=== PATIENT | female | born 1940 | race Caucasian/White ===

== ENCOUNTER 2016-06-27 14:25 | Emergency (ER) | payer OTHER ==
[~2016-06-27] VITALS: Ht 154.9 cm; Wt 61.7 kg
[~2016-06-27 14:25] MED LIST: ALLEGRA-D 121 TABLET PO; ALLOPURINOL100 MG PO; AMBIEN10 MG PO; ARANESP10 MCG/0.4 SC; ASPIRIN EC325 MG PO; BACTRIM,SEPT1 TABLET PO; BYSTOLIC10 MG PO; CARDIZEM CD,CA240 MG PO; CELEBREX200 MG PO; CLINDAMYCIN HC300 MG PO; COLCRYS0.6 MG PO; CYANOCOBAL1000 MCG/2 IM; DICYCLOMINE HCL10 MG PO; FOLIC ACID1 MG PO; FUROSEMIDE20 MG PO; FUROSEMIDE40 MG PO; HUMALOG MI100 UNIT/3 SC; HUMALOG100 UNIT/2 SC; HYDROCODON-ACE1 EAC7 PO; HYDROCODON-ACE1 EAC8 PO; HYDROCODONE PO; KLOR-CON SPRIN10 MEQ PO; LEUCOVORIN CALC10 MG PO; LEUCOVORIN CALCI5 MG PO; LEVAQUIN500 MG PO; LEVEMIR FL100 UNIT/1 SC; LIPITOR20 MG PO; LISINOPRIL20 MG PO; LOMOTIL TABLET1 EACH PO; MAG-OXIDE400 MG PO; MAXAIR PO; METHOTREXA25 MG/1 M5 SC; NASACORT AQ16.5 GM BOTH NARES; NEXIUM40 MG PO; NORCO 7.5/321 TABLET PO; ONGLYZA5 MG PO; OTREXUP 1010 MG/0.4 SC; PREDNISONE10 MG PO; PREDNISONE2.5 MG PO; PROAIR HFA8.5 GM IH; RASUVO 12.12.5 MG/0. SC; RECLAST5 MG/100 M IV; REGLAN5 MG PO; SENNA-TIME S T1 EACH PO; SPIRIVA1 INHALATI IH; TRESIBA FL100 UNIT/1 SC; TYLENOL REGULA325 MG PO; VENTOLIN HFA18 GM IH; VITAMIN B122500 MCG PO; VITAMIN D2000 UNIT PO; VITAMIN D34000 UNIT PO; VOLTAREN 1% GE100 GM TP; XANAX0.25 MG PO; ZOFRAN4 MG PO
[2016-06-27 15:30] LABS: HEMATOCRIT 30.5 % (36.0-46.0); MCH 27.9 PG (29.0-34.0); MCHC 32.5 G/DL (30.0-36.0); MCV 85.9 FL (83-99); MEAN PLAT.VOLUME 9.2 uM^3 (9.5-12.4); PLATELET COUNT 210 K/uL (156-360); RBC DIS.WIDTH-SD 48.4 % (39-53); RED BLOOD COUNT 3.55 M/uL (3.80-5.20); WHITE BLOOD COUNT 5.8 K/uL (4.1-10.2)
[2016-06-27 15:38] LABS: CHLORIDE 102 mEq/L (99-109); POTASSIUM 3.5 mEq/L (3.7-5.4); SODIUM 134 mEq/L (136-147)
[2016-06-27 15:40] LABS: D-DIMER ELISA 1.83 mg/L FEU (< 0.57); GLUCOSE 228 mg/dL (70-99)
[2016-06-27 15:41] LABS: ANION GAP 10 MEQ/L (2-14)
[2016-06-27 15:43] LABS: GFR ESTIMATE (CALCULATED) > 59 mL/min/
[2016-06-27 15:44] LABS: UREA NITROGEN (BUN) 8 mg/dL (9-23)
[2016-06-27 15:50] LABS: TROP-I INTERPRETATION NEGATIVE; TROPONIN-I < 0.01 ng/mL (0.0-0.30)
[2016-06-27 20:19] VITALS: BP 132/60
== END 2016-06-27 20:43 | disposition home or self-care (01) ==
LOC: EME → EDBD 14:25 → EME 14:25
PROVIDERS: Emergency Medicine
DX: R55 Syncope and collapse (principal); J45.909 Unspecified asthma, uncomplicated; E11.9 Type 2 diabetes mellitus without complications; I10 Essential (primary) hypertension; K21.9 Gastro-esophageal reflux disease without esophagitis; Z98.1 Arthrodesis status; Z96.653 Presence of artificial knee joint, bilateral; Z79.4 Long term (current) use of insulin
CPT/HCPCS: 71020; 71275; 73502; 80048; 84484; 85027; 85379; 93005; 99281; 99285; J7030

== ENCOUNTER 2017-06-15 22:11 | Inpatient (IN) | payer OTHER ==
[~2017-06-15] VITALS: Ht 154.9 cm; Wt 64.5 kg
[~2017-06-15 22:11] MED LIST changes: -AMBIEN10 MG PO; +AMBIEN5 MG PO; +ERGOCALCIF50000 UNIT PO; +METHOTREXA25 MG/1 M5 IV; -METHOTREXA25 MG/1 M5 SC
[2017-06-15 22:40] LABS: BASOPHIL (%) 0.5 % (0-1); EOSINOPHIL (%) 1.1 % (0-5); EOSINOPHIL COUNT 0.1 K/uL (0-0.3); HEMATOCRIT 28.5 % (36.0-46.0); HEMOGLOBIN 9.8 G/DL (11.9-15.5); IMMATURE GRANULOCYTE (%) 0.2 % (0.0-0.7); LYMPHOCYTE (%) 21.2 % (15-42); LYMPHOCYTE COUNT 1.3 K/uL (1.0-2.8); MCH 30.6 PG (29.0-34.0); MCHC 34.4 G/DL (30.0-36.0); MCV 89.1 FL (83-99); MONOCYTE (%) 8.1 % (3-12); MONOCYTE COUNT 0.5 K/uL (0-0.8); NEUTROPHIL (%) 68.9 % (45-76); NEUTROPHIL COUNT 4.4 K/uL (1.8-6.4); PLATELET COUNT 193 K/uL (156-360); RBC DIS.WIDTH-CV 14.8 % (11.8-14.6); RBC DIS.WIDTH-SD 48.2 % (39-53); WHITE BLOOD COUNT 6.3 K/uL (4.1-10.2)
[2017-06-15 22:51] LABS: ALBUMIN 3.7 g/dL (3.2-4.8); CHLORIDE 105 mEq/L (99-109); POTASSIUM 3.5 mEq/L (3.7-5.4); SODIUM 134 mEq/L (136-147)
[2017-06-15 22:53] LABS: GLUCOSE 139 mg/dL (70-99)
[2017-06-15 22:54] LABS: TOTAL PROTEIN 5.9 g/dL (6.4-8.3)
[2017-06-15 22:55] LABS: TOTAL BILIRUBIN 0.7 mg/dL (0.0-1.0)
[2017-06-15 22:57] LABS: ALKALINE PHOSPHATASE 42 IU/L (3-129); CREATININE 0.8 mg/dL (0.6-1.3); GFR ESTIMATE (CALCULATED) > 59 mL/min/
[2017-06-15 22:58] LABS: UREA NITROGEN (BUN) 7 mg/dL (9-23)
[2017-06-15 22:59] LABS: AST (GOT) 39 IU/L (2-34)
[2017-06-15 23:00] LABS: ALT (GPT) 18 IU/L (3-49)
[2017-06-16 00:56] LABS: APPEARANCE SL.HAZY ((CLEAR)); BILIRUBIN NEGATIVE; BLOOD SMALL; COLOR YELLOW ((YELLOW)); GLUCOSE (STRIP) NEGATIVE; KETONES NEGATIVE; LEUKOCYTES LARGE; NITRITE POSITIVE; PROTEIN (STRIP) NEGATIVE; SPECIFIC GRAVITY 1.004 (1.000-1.030); UROBILINOGEN 0.2 MG/DL (0.2-1.0)
[2017-06-16 01:09] LABS: BACTERIA RARE /HPF; EPITHELIAL CELLS RARE /HPF; MUCUS TRACE /LPF; UCUL ADDED? YES; WHITE BLOOD CELLS TNTC /HPF (0-5)
[2017-06-16] MEDS ORDERED: CALCITRIOL0.25 MCG PO (03:34)
[2017-06-16] MEDS ORDERED: GLUCOTROL XL10 MG PO (03:34)
[2017-06-16] MEDS ORDERED: SPIRIVA18 MCG IH (03:35)
[2017-06-16] MEDS ORDERED: ACTOS15 MG PO (03:35)
[2017-06-16 03:43] VITALS: BP 134/62
[2017-06-16] MEDS ORDERED: PREDNISONE10 MG PO (03:46)
[2017-06-16 08:52] VITALS: BP 137/64
[2017-06-16 10:12] LABS: HEMATOCRIT 30.6 % (36.0-46.0); HEMOGLOBIN 10.1 G/DL (11.9-15.5); MCH 29.9 PG (29.0-34.0); MCV 90.5 FL (83-99); PLATELET COUNT 187 K/uL (156-360); RED BLOOD COUNT 3.38 M/uL (3.80-5.20); WHITE BLOOD COUNT 6.8 K/uL (4.1-10.2)
[2017-06-16 10:18] LABS: C DIFF TOXIN NEGATIVE (NEGATIVE)
[2017-06-16 10:39] LABS: CHLORIDE 109 MEQ/L (99-109); CREATININE 0.8 MG/DL (0.6-1.3); GFR ESTIMATE (CALCULATED) > 59 mL/min/; GLUCOSE 128 mg/dL (70-99); SODIUM 139 MEQ/L (136-147); UREA NITROGEN (BUN) 8 mg/dL (9-23)
[2017-06-16 12:44] VITALS: BP 133/63
[2017-06-16 15:14] VITALS: BP 115/55
[2017-06-16 18:44] LABS: MAGNESIUM 1.6 mg/dl (1.3-2.7); POTASSIUM 4.2 MEQ/L (3.7-5.4)
[2017-06-16 19:45] VITALS: BP 120/68
[2017-06-16 23:23] VITALS: BP 118/57
[2017-06-17 05:56] LABS: CHLORIDE 111 MEQ/L (99-109); POTASSIUM 4.1 MEQ/L (3.7-5.4); SODIUM 139 MEQ/L (136-147)
[2017-06-17 06:09] LABS: CREATININE 0.9 MG/DL (0.6-1.3); GFR ESTIMATE (CALCULATED) > 59 mL/min/; UREA NITROGEN (BUN) 9 mg/dL (9-23)
[2017-06-17 06:10] LABS: GLUCOSE 89 mg/dL (70-99)
[2017-06-17 08:00] VITALS: BP 108/60
[2017-06-17 09:43] LABS: BASOPHIL (%) 0.2 % (0-1); EOSINOPHIL (%) 1.3 % (0-5); EOSINOPHIL COUNT 0.1 K/uL (0-0.3); HEMATOCRIT 24.5 % (36.0-46.0); IMMATURE GRANULOCYTE (%) 0.4 % (0.0-0.7); LYMPHOCYTE (%) 30.7 % (15-42); LYMPHOCYTE COUNT 1.7 K/uL (1.0-2.8); MCH 29.9 PG (29.0-34.0); MCHC 32.2 G/DL (30.0-36.0); MCV 92.8 FL (83-99); MONOCYTE (%) 5.6 % (3-12); MONOCYTE COUNT 0.3 K/uL (0-0.8); NEUTROPHIL (%) 61.8 % (45-76); NEUTROPHIL COUNT 3.5 K/uL (1.8-6.4); PLATELET COUNT 174 K/uL (156-360); RBC DIS.WIDTH-CV 15.4 % (11.8-14.6); RBC DIS.WIDTH-SD 52.2 % (39-53); WHITE BLOOD COUNT 5.6 K/uL (4.1-10.2)
[2017-06-17 09:46] LABS: HEMOGLOBIN 7.9 G/DL (11.9-15.5); RED BLOOD COUNT 2.64 M/uL (3.80-5.20)
[2017-06-17 11:11] VITALS: BP 122/59
[2017-06-17 12:23] LABS: HEMOGLOBIN 7.7 G/DL (11.9-15.5)
[2017-06-17 14:56] LABS: IRON 35 MCG/DL (35-150); TRANSFERRIN (TIBC) 208.2 mg/dL (215-380); TRANSFERRIN SATUR. 17 % (20-55)
[2017-06-17 15:22] VITALS: BP 127/60
[2017-06-17 18:08] LABS: HEMATOCRIT 25.1 % (36.0-46.0); HEMOGLOBIN 8.2 G/DL (11.9-15.5)
[2017-06-17 19:54] VITALS: BP 141/63
[2017-06-17 23:24] VITALS: BP 150/64
[2017-06-18 00:21] LABS: HEMOGLOBIN 8.4 G/DL (11.9-15.5); MCV 92.6 FL (83-99)
[2017-06-18 06:05] LABS: HEMATOCRIT 25.9 % (36.0-46.0); HEMOGLOBIN 8.3 G/DL (11.9-15.5); MCV 93.8 FL (83-99)
[2017-06-18 09:00] VITALS: BP 147/65
[2017-06-18 11:40] LABS: HEMATOCRIT 24.7 % (36.0-46.0); HEMOGLOBIN 7.9 G/DL (11.9-15.5); MCV 93.6 FL (83-99)
[2017-06-18 11:51] VITALS: BP 125/59
[2017-06-18 15:08] VITALS: BP 128/57
[2017-06-18 17:55] VITALS: BP 141/69
[2017-06-18 18:45] LABS: HEMATOCRIT 27.5 % (36.0-46.0); HEMOGLOBIN 9.2 G/DL (11.9-15.5); MCV 93.9 FL (83-99)
[2017-06-18 19:45] VITALS: BP 133/61
[2017-06-18 23:11] VITALS: BP 158/71
[2017-06-19 05:33] LABS: HEMATOCRIT 25.6 % (36.0-46.0); HEMOGLOBIN 8.7 G/DL (11.9-15.5); MCH 31.3 PG (29.0-34.0); MCV 92.1 FL (83-99); PLATELET COUNT 201 K/uL (156-360); RBC DIS.WIDTH-CV 15.4 % (11.8-14.6); RBC DIS.WIDTH-SD 51.4 % (39-53); RED BLOOD COUNT 2.78 M/uL (3.80-5.20); WHITE BLOOD COUNT 7.3 K/uL (4.1-10.2)
[2017-06-19 08:00] VITALS: BP 133/63
[2017-06-19 12:00] VITALS: BP 153/73
[2017-06-19] MEDS ORDERED: BACTRIM,SEPT1 TABLET PO (12:21)
== END 2017-06-19 14:41 | disposition home health service (06) | DRG 392 ==
LOC: EME → EDBD 22:11 → EDOF 06-16 02:51 → ENRESERV 06-16 02:52 → 5WEST 06-16 03:37
PROVIDERS: Emergency Medicine; Hospitalist; Internal Medicine; Internal Medicine Gastroenterology; Physician Assistant Medical
PROC: 0DB38ZX Excision of Lower Esophagus, Via Natural or Artificial Opening Endoscopic, Diagnostic (ICD-10-PCS; principal; 2017-06-18)
PROC: 0DB68ZX Excision of Stomach, Via Natural or Artificial Opening Endoscopic, Diagnostic (ICD-10-PCS; principal; 2017-06-18)
DX: A08.4 Viral intestinal infection, unspecified (principal); N25.81 Secondary hyperparathyroidism of renal origin; K21.9 Gastro-esophageal reflux disease without esophagitis; J44.9 Chronic obstructive pulmonary disease, unspecified; K31.84 Gastroparesis; E86.0 Dehydration; K58.0 Irritable bowel syndrome with diarrhea; M06.9 Rheumatoid arthritis, unspecified; M10.9 Gout, unspecified; N18.3 Chronic kidney disease, stage 3 (moderate); E11.22 Type 2 diabetes mellitus with diabetic chronic kidney disease; E78.5 Hyperlipidemia, unspecified; I12.9 Hypertensive chronic kidney disease with stage 1 through stage 4 chronic kidney disease, or unspecified chronic kidney disease; D63.8 Anemia in other chronic diseases classified elsewhere; E11.43 Type 2 diabetes mellitus with diabetic autonomic (poly)neuropathy; E55.9 Vitamin D deficiency, unspecified; E53.8 Deficiency of other specified B group vitamins; E11.69 Type 2 diabetes mellitus with other specified complication; N30.10 Interstitial cystitis (chronic) without hematuria; Z60.2 Problems related to living alone; B18.2 Chronic viral hepatitis C; G43.909 Migraine, unspecified, not intractable, without status migrainosus; Z96.612 Presence of left artificial shoulder joint; Z96.611 Presence of right artificial shoulder joint; Z96.653 Presence of artificial knee joint, bilateral; Z79.4 Long term (current) use of insulin; Z98.1 Arthrodesis status; Z88.5 Allergy status to narcotic agent; Z88.1 Allergy status to other antibiotic agents; Z79.51 Long term (current) use of inhaled steroids; Z90.710 Acquired absence of both cervix and uterus; Z90.49 Acquired absence of other specified parts of digestive tract; Z86.010 Personal history of colon polyps; Z82.49 Family history of ischemic heart disease and other diseases of the circulatory system; Z80.0 Family history of malignant neoplasm of digestive organs; Z80.1 Family history of malignant neoplasm of trachea, bronchus and lung
CPT/HCPCS: 80048; 80053; 81003; 82272; 82948; 83540; 83605; 83630; 83735; 84132 91; 84466; 85014; 85018; 85025; 85027; 86850; 86900; 86901; 86905; 86920; 87077; 87086; 87177; 87186; 87329; 87493; 87506; 88305; 88342 TC; 94640; 94640 76; 99202; 99281; 99285; G8978 GP CJ; G8979 GP CI; J1644; J1815; J2405; J3420; J3480; J7030; J7512

== ENCOUNTER 2017-09-20 07:12 | Observation (INO) | payer OTHER ==
[~2017-09-20] VITALS: Ht 147.3 cm; Wt 63.3 kg
[~2017-09-20 07:12] MED LIST changes: +ACTOS15 MG PO; +CALCITRIOL0.25 MCG PO; +GLUCOTROL XL10 MG PO; -METHOTREXA25 MG/1 M5 IV; +METHOTREXA250 MG/10 IV; +SPIRIVA18 MCG IH
[2017-09-20 07:32] LABS: BASOPHIL (%) 0.3 % (0-1); EOSINOPHIL (%) 1.5 % (0-5); EOSINOPHIL COUNT 0.2 K/uL (0-0.3); HEMATOCRIT 28.6 % (36.0-46.0); IMMATURE GRANULOCYTE (%) 1.6 % (0.0-0.7); LYMPHOCYTE (%) 20.6 % (15-42); LYMPHOCYTE COUNT 2.2 K/uL (1.0-2.8); MCH 33.2 PG (29.0-34.0); MONOCYTE (%) 7.8 % (3-12); MONOCYTE COUNT 0.9 K/uL (0-0.8); NEUTROPHIL (%) 68.2 % (45-76); NEUTROPHIL COUNT 7.4 K/uL (1.8-6.4); PLATELET COUNT 164 K/uL (156-360); RBC DIS.WIDTH-SD 62.5 % (39-53); RED BLOOD COUNT 3.01 M/uL (3.80-5.20); WHITE BLOOD COUNT 10.9 K/uL (4.1-10.2)
[2017-09-20 07:42] LABS: INTER. NORMALIZED RATIO 1.1
[2017-09-20 07:44] LABS: PTT 23.1 SEC (25-37)
[2017-09-20 08:09] LABS: CHLORIDE 89 MEQ/L (99-109); CREATININE 1.2 MG/DL (0.6-1.3); GFR ESTIMATE (CALCULATED) 47 mL/min/; GLUCOSE 217 mg/dL (70-99); HDL CHOLESTEROL 40 MG/DL (Desirable>=50); LDL CHOLESTEROL 100 mg/dL (Desirable<100); NON-HDL CHOLESTEROL 179 mg/dL (Desirable<160); POTASSIUM 4.2 MEQ/L (3.7-5.4); SODIUM 126 MEQ/L (136-147); TOTAL CHOLESTEROL 219 mg/dL (Desirable<200); TRIGLYCERIDES 395 MG/DL (Normal: <150); UREA NITROGEN (BUN) 27 mg/dL (9-23)
[2017-09-20] MEDS ORDERED: PREDNISONE2.5 MG PO (11:19)
[2017-09-20] MEDS ORDERED: ZOLPIDEM TARTRAT5 MG PO (11:20)
[2017-09-20] MEDS ORDERED: ESOMEPRAZOLE MA40 MG PO (11:21)
[2017-09-20] MEDS ORDERED: METOCLOPRAMIDE10 MG PO (11:24)
[2017-09-20] MEDS ORDERED: POTASSIUM CITR10 MEQ PO (11:26)
[2017-09-20] MEDS ORDERED: TRESIBA FL200 UNIT/1 SC (11:26)
[2017-09-20 13:02] LABS: HEMOGLOBIN A1c (GLYCOHEMOGLOB) 10.1 % (Below 5.7)
[2017-09-20 15:37] VITALS: BP 104/54
[2017-09-20 19:59] LABS: THYROTROPIN (TSH) 1.2 MIU/L (0.4-5.5)
[2017-09-20 20:18] VITALS: BP 99/54
[2017-09-21 04:01] VITALS: BP 83/43
[2017-09-21 06:10] LABS: HEMATOCRIT 26.9 % (36.0-46.0); HEMOGLOBIN 9.3 G/DL (11.9-15.5); MCH 33.6 PG (29.0-34.0); MCHC 34.6 G/DL (30.0-36.0); MCV 97.1 FL (83-99); PLATELET COUNT 184 K/uL (156-360); RED BLOOD COUNT 2.77 M/uL (3.80-5.20); WHITE BLOOD COUNT 9.8 K/uL (4.1-10.2)
[2017-09-21 07:12] LABS: CREATININE 1.1 MG/DL (0.6-1.3); GFR ESTIMATE (CALCULATED) 52 mL/min/; POTASSIUM 3.6 MEQ/L (3.7-5.4); UREA NITROGEN (BUN) 24 mg/dL (9-23)
[2017-09-21 07:16] LABS: CHLORIDE 101 MEQ/L (99-109); GLUCOSE 54 mg/dL (70-99); SODIUM 135 MEQ/L (136-147)
[2017-09-21 07:38] VITALS: BP 106/55
[2017-09-21] MEDS ORDERED: GLIPIZIDE5 MG PO (11:35)
[2017-09-21] MEDS ORDERED: TRESIBA FL100 UNIT/1 SC (11:36)
[2017-09-21] MEDS ORDERED: FUROSEMIDE40 MG PO (11:37)
[2017-09-21 11:49] VITALS: BP 96/55
== END 2017-09-21 14:54 | disposition home or self-care (01) ==
LOC: EME → EDBD 07:12 → EDOF 09:33 → 5WEST 09:33 → EDOF 09:33 → ENRESERV 09:38 → EDOF 09:41 → ENRESERV 14:07 → 5WEST 15:26
PROVIDERS: Emergency Medicine; Hospitalist
DX: E87.1 Hypo-osmolality and hyponatremia (principal); E11.649 Type 2 diabetes mellitus with hypoglycemia without coma; E11.65 Type 2 diabetes mellitus with hyperglycemia; E11.42 Type 2 diabetes mellitus with diabetic polyneuropathy; E78.5 Hyperlipidemia, unspecified; M06.9 Rheumatoid arthritis, unspecified; I12.9 Hypertensive chronic kidney disease with stage 1 through stage 4 chronic kidney disease, or unspecified chronic kidney disease; N18.9 Chronic kidney disease, unspecified; E11.22 Type 2 diabetes mellitus with diabetic chronic kidney disease; K21.9 Gastro-esophageal reflux disease without esophagitis; Z79.4 Long term (current) use of insulin; J44.9 Chronic obstructive pulmonary disease, unspecified; E55.9 Vitamin D deficiency, unspecified; E21.3 Hyperparathyroidism, unspecified; K58.9 Irritable bowel syndrome, unspecified; Z96.611 Presence of right artificial shoulder joint; Z96.612 Presence of left artificial shoulder joint; Z96.653 Presence of artificial knee joint, bilateral; Z90.710 Acquired absence of both cervix and uterus; Z90.49 Acquired absence of other specified parts of digestive tract; Z88.5 Allergy status to narcotic agent; Z88.1 Allergy status to other antibiotic agents; Z91.048 Other nonmedicinal substance allergy status
CPT/HCPCS: 70450; 71045; 80048; 80061; 82948; 83036; 83930; 83935; 84443; 85025; 85027; 85610; 85730; 93005; 94640; 99202; 99281; 99285; G0378; G8978 GP CI; G8979 GP CH; G8980 GP CI; J1644; J1815; J7030

== ENCOUNTER 2017-10-31 14:10 | Emergency (ER) | payer OTHER ==
[~2017-10-31] VITALS: Ht 152.4 cm; Wt 64.7 kg
[~2017-10-31 14:10] MED LIST changes: +ESOMEPRAZOLE MA40 MG PO; +GLIPIZIDE5 MG PO; +METOCLOPRAMIDE10 MG PO; +POTASSIUM CITR10 MEQ PO; +TRESIBA FL200 UNIT/1 SC; +ZOLPIDEM TARTRAT5 MG PO
[2017-10-31 14:42] LABS: HEMATOCRIT 27.1 % (36.0-46.0); HEMOGLOBIN 9.8 G/DL (11.9-15.5); MCH 35.5 PG (29.0-34.0); MCHC 36.2 G/DL (30.0-36.0); MCV 98.2 FL (83-99); PLATELET COUNT 157 K/uL (156-360); RBC DIS.WIDTH-CV 15.9 % (11.8-14.6); RBC DIS.WIDTH-SD 56.6 % (39-53); RED BLOOD COUNT 2.76 M/uL (3.80-5.20); WHITE BLOOD COUNT 9.6 K/uL (4.1-10.2)
[2017-10-31 14:51] LABS: ALBUMIN 3.7 g/dL (3.2-4.8); CHLORIDE 99 mEq/L (99-109); POTASSIUM 4.3 mEq/L (3.7-5.4); SODIUM 133 mEq/L (136-147)
[2017-10-31 14:54] LABS: GLUCOSE 208 mg/dL (70-99); TOTAL PROTEIN 6.1 g/dL (6.4-8.3)
[2017-10-31 14:56] LABS: TOTAL BILIRUBIN 0.5 mg/dL (0.0-1.0)
[2017-10-31 14:57] LABS: ALKALINE PHOSPHATASE 49 IU/L (3-129)
[2017-10-31 14:58] LABS: CREATININE 0.9 mg/dL (0.6-1.3); GFR ESTIMATE (CALCULATED) > 59 mL/min/
[2017-10-31 14:59] LABS: AST (GOT) 23 IU/L (2-34); UREA NITROGEN (BUN) 8 mg/dL (9-23)
[2017-10-31 15:00] LABS: ALT (GPT) 23 IU/L (3-49)
[2017-10-31 15:01] LABS: LIPASE 10 U/L (1.0-51.0)
[2017-10-31 16:46] LABS: APPEARANCE TURBID ((CLEAR)); BILIRUBIN NEGATIVE; BLOOD MODERATE; COLOR YELLOW ((YELLOW)); GLUCOSE (STRIP) NEGATIVE; KETONES NEGATIVE; LEUKOCYTES LARGE; NITRITE NEGATIVE; PROTEIN (STRIP) 100; SPECIFIC GRAVITY 1.019 (1.000-1.030); UROBILINOGEN 0.2 MG/DL (0.2-1.0)
[2017-10-31 17:18] LABS: UCUL ADDED? YES; WHITE BLOOD CELLS TNTC /HPF (0-5)
[2017-10-31] MEDS ORDERED: BACTRIM,SEPT1 TABLET PO (18:20)
[2017-10-31] MEDS ORDERED: ZOFRAN4 MG PO (18:23)
[2017-10-31 18:58] VITALS: BP 113/54
== END 2017-10-31 19:02 | disposition home or self-care (01) ==
LOC: EME 14:10
PROVIDERS: Emergency Medicine
DX: N39.0 Urinary tract infection, site not specified (principal); D64.9 Anemia, unspecified; M06.9 Rheumatoid arthritis, unspecified; K31.84 Gastroparesis; N18.9 Chronic kidney disease, unspecified; K58.9 Irritable bowel syndrome, unspecified; F31.9 Bipolar disorder, unspecified; M19.90 Unspecified osteoarthritis, unspecified site; Z96.659 Presence of unspecified artificial knee joint; Z90.49 Acquired absence of other specified parts of digestive tract; Z98.1 Arthrodesis status; Z88.5 Allergy status to narcotic agent; Z88.1 Allergy status to other antibiotic agents
CPT/HCPCS: 74177; 80053; 81003; 83690; 85027; 87077; 87086; 87186; 99281; 99285; J2405; J7030

== ENCOUNTER 2017-11-30 15:06 | Observation (INO) | payer OTHER ==
[~2017-11-30] VITALS: Ht 147.3 cm; Wt 59.7 kg
[2017-11-30 15:36] LABS: HEMATOCRIT 34.8 % (36.0-46.0); HEMOGLOBIN 12.4 G/DL (11.9-15.5); MCH 33.6 PG (29.0-34.0); MCHC 35.6 G/DL (30.0-36.0); MCV 94.3 FL (83-99); PLATELET COUNT 177 K/uL (156-360); RBC DIS.WIDTH-CV 13.3 % (11.8-14.6); RBC DIS.WIDTH-SD 45.4 % (39-53); RED BLOOD COUNT 3.69 M/uL (3.80-5.20); WHITE BLOOD COUNT 10.7 K/uL (4.1-10.2)
[2017-11-30 15:59] LABS: CHLORIDE 100 mEq/L (99-109); POTASSIUM 3.5 mEq/L (3.7-5.4); SODIUM 137 mEq/L (136-147)
[2017-11-30 16:01] LABS: GLUCOSE 241 mg/dL (70-99)
[2017-11-30 16:05] LABS: GFR ESTIMATE (CALCULATED) 58 mL/min/; UREA NITROGEN (BUN) 11 mg/dL (9-23)
[2017-11-30 16:11] LABS: APPEARANCE CLEAR ((CLEAR)); BILIRUBIN NEGATIVE; BLOOD NEGATIVE; COLOR STRAW ((YELLOW)); GLUCOSE (STRIP) NEGATIVE; KETONES NEGATIVE; LEUKOCYTES NEGATIVE; NITRITE NEGATIVE; PROTEIN (STRIP) NEGATIVE; SPECIFIC GRAVITY 1.006 (1.000-1.030); UCUL ADDED? NO; UROBILINOGEN 0.2 MG/DL (0.2-1.0)
[2017-11-30 16:55] LABS: TROP-I INTERPRETATION NEGATIVE; TROPONIN-I 0.01 ng/mL (0.0-0.30)
[2017-11-30 17:16] LABS: AMPHETAMINE NEGATIVE (500 ng/mL); BARBITURATES NEGATIVE (200 ng/mL); BENZODIAZEPINES NEGATIVE (150 ng/mL); BUPRENORPHINE NEGATIVE (10 ng/mL); COCAINE NEGATIVE (150 ng/mL); METHADONE NEGATIVE (200 ng/mL); METHAMPHETAMINE NEGATIVE (500 ng/mL); OPIATES (MORPHINE) PRESUMPTIVE POSITIVE (100 ng/mL); OXYCODONE NEGATIVE (100 ng/mL); PHENCYCLIDINE NEGATIVE (25 ng/mL); PROPOXYPHENE NEGATIVE (300 ng/mL); THC CANNABINOIDS NEGATIVE (50 ng/mL); TRICYCLIC ANTIDEPRESSANTS NEGATIVE (300 ng/mL)
[2017-11-30] MEDS ORDERED: TRESIBA FL100 UNIT/1 SC (18:23)
[2017-11-30] MEDS ORDERED: NITROFURANTOIN100 M3 PO (18:30)
[2017-11-30 20:22] LABS: SERUM ETHYL ALCOHOL < 10 mg/dL
[2017-11-30 22:45] VITALS: BP 117/56
[2017-12-01 03:49] VITALS: BP 125/57
[2017-12-01 05:29] LABS: BASOPHIL (%) 0.4 % (0-1); EOSINOPHIL (%) 1.7 % (0-5); EOSINOPHIL COUNT 0.2 K/uL (0-0.3); HEMATOCRIT 30.6 % (36.0-46.0); HEMOGLOBIN 10.5 G/DL (11.9-15.5); IMMATURE GRANULOCYTE (%) 0.4 % (0.0-0.7); LYMPHOCYTE (%) 24.5 % (15-42); LYMPHOCYTE COUNT 2.3 K/uL (1.0-2.8); MCH 32.5 PG (29.0-34.0); MCHC 34.3 G/DL (30.0-36.0); MCV 94.7 FL (83-99); MONOCYTE (%) 11.2 % (3-12); NEUTROPHIL (%) 61.8 % (45-76); NEUTROPHIL COUNT 5.7 K/uL (1.8-6.4); PLATELET COUNT 212 K/uL (156-360); RBC DIS.WIDTH-CV 13.5 % (11.8-14.6); RBC DIS.WIDTH-SD 46.7 % (39-53); RED BLOOD COUNT 3.23 M/uL (3.80-5.20); WHITE BLOOD COUNT 9.2 K/uL (4.1-10.2)
[2017-12-01 05:49] LABS: TROP-I INTERPRETATION NEGATIVE; TROPONIN-I 0.01 ng/mL (0.0-0.30)
[2017-12-01 07:39] VITALS: BP 130/61
[2017-12-01 12:19] VITALS: BP 132/68
[2017-12-01 17:40] VITALS: BP 124/56
[2017-12-01 19:12] VITALS: BP 119/59
[2017-12-01 21:00] VITALS: BP 119/59
[2017-12-02 00:29] VITALS: BP 152/70
[2017-12-02 07:30] VITALS: BP 159/72
[2017-12-02 09:24] LABS: CHLORIDE 108 MEQ/L (99-109); CREATININE 0.7 MG/DL (0.6-1.3); GFR ESTIMATE (CALCULATED) > 59 mL/min/; GLUCOSE 207 mg/dL (70-99); POTASSIUM 3.3 MEQ/L (3.7-5.4); SODIUM 139 MEQ/L (136-147); UREA NITROGEN (BUN) 8 mg/dL (9-23)
[2017-12-02 13:22] VITALS: BP 131/60; BP 149/70; BP 91/55
[2017-12-02 16:30] VITALS: BP 152/68
[2017-12-02 20:30] VITALS: BP 143/69
[2017-12-03] VITALS (7 sets, daily range): BP systolic 149–181; BP diastolic 65–89
[2017-12-03] MEDS ORDERED: HYDROCODON-ACE1 EAC7 PO (15:35)
== END 2017-12-03 16:34 | disposition home or self-care (01) ==
LOC: EME 15:06 → EDOF 19:25 → 4SOUTH 19:25 → ENRESERV 19:40 → 4SOUTH 22:16
PROVIDERS: Emergency Medicine; Hospitalist; Internal Medicine; Physician Assistant Medical
DX: R55 Syncope and collapse (principal); M06.9 Rheumatoid arthritis, unspecified; R53.1 Weakness; R26.89 Other abnormalities of gait and mobility; I10 Essential (primary) hypertension; M10.9 Gout, unspecified; E78.5 Hyperlipidemia, unspecified; F01.51 Vascular dementia, unspecified severity, with behavioral disturbance; E11.43 Type 2 diabetes mellitus with diabetic autonomic (poly)neuropathy; E11.22 Type 2 diabetes mellitus with diabetic chronic kidney disease; I12.9 Hypertensive chronic kidney disease with stage 1 through stage 4 chronic kidney disease, or unspecified chronic kidney disease; N18.3 Chronic kidney disease, stage 3 (moderate); E11.69 Type 2 diabetes mellitus with other specified complication; K21.9 Gastro-esophageal reflux disease without esophagitis; J44.9 Chronic obstructive pulmonary disease, unspecified; K58.0 Irritable bowel syndrome with diarrhea; N30.10 Interstitial cystitis (chronic) without hematuria; E55.9 Vitamin D deficiency, unspecified; E53.9 Vitamin B deficiency, unspecified; E21.3 Hyperparathyroidism, unspecified; Z96.611 Presence of right artificial shoulder joint; Z96.612 Presence of left artificial shoulder joint; Z96.653 Presence of artificial knee joint, bilateral; Z90.49 Acquired absence of other specified parts of digestive tract; Z90.710 Acquired absence of both cervix and uterus; Z90.722 Acquired absence of ovaries, bilateral; Z90.79 Acquired absence of other genital organ(s); Z98.1 Arthrodesis status; Z80.0 Family history of malignant neoplasm of digestive organs; Z82.49 Family history of ischemic heart disease and other diseases of the circulatory system; Z88.1 Allergy status to other antibiotic agents; Z91.048 Other nonmedicinal substance allergy status; Z79.899 Other long term (current) drug therapy; Z79.84 Long term (current) use of oral hypoglycemic drugs; Z79.52 Long term (current) use of systemic steroids
CPT/HCPCS: 70450; 70551; 71045; 80048; 81003; 82948; 84443; 84484; 84999; 85025; 85027; 87493; 93005; 93306; 99202; 99281; 99284; G0378; G0480; G8978 GP CJ; G8979 GP CI; G8980 CJ; G8987 GO CJ; G8988 GO CH; G8989 CJ; J1644; J1815; J3480; J7512